=== PATIENT | male | born 1990 | race Caucasian/White ===

== ENCOUNTER → 2016-07-30 | Outpatient (CLI) | payer BC ==
[~2016-07-30] MED LIST: ACET325T96 PO
[2016-08-03 14:32] LABS: HEP B QUANT <20 IU/mL (<20); HEP B QUANT LOG IU/ML <1.30 Log IU/mL (<1.30); HEPATITIS BE ANTIBODY TC 556 Nonreactive; HEPATITIS BE ANTIGEN TC 555 Nonreactive
== END | disposition home or self-care (01) ==
LOC: C.LAB1850 16:28
PROVIDERS: ATTEND Internal Medicine Infectious Disease
DX: B18.1 Chronic viral hepatitis B without delta-agent (principal)